=== PATIENT | female | born 1980 | race Caucasian/White ===

== ENCOUNTER 2016-06-02 13:30 | Emergency (ER) | payer OTHER ==
[~2016-06-02] VITALS: Ht 152.4 cm; Wt 106.0 kg
[~2016-06-02 13:30] MED LIST: AZIT250T94 PO; D-ME473S2 PO; IBUP-1542 PO
[2016-06-02 14:18] VITALS: Ht 152.4 cm; Wt 106.0 kg
[2016-06-02] MEDS ORDERED: HC1C30 TOP (14:51)
--- NOTE | 2016-06-02 14:56 | ERD ---
ER Documentation Chief Complaint Date/Time DATE: 06/02/16 TIME: 14:51 Chief Complaint RASH UNDER ARMS X2 DAYS HPI 36-year-old female complaining of pruritic skin lesions under both axilla 2 days. Patient stated that he has been itchy and slightly painful. Denies fever or chills. Denies exposure to new foods or new cleaning products. Denies shortness of breath. Denies history of asthma. ROS All systems reviewed and are negative except as per history of present illness. Medications Home Meds Active Scripts Hydrocortisone* Topical (Hydrocortisone* Topical) 1%-28.35 Gm Cream..g., 1 APPLIC TOP Q6 Y for ITCHING, #1 TUB Prov:LENIN WILHELM [employer] SOFTWARE ARCHITECT 06/02/16 Azithromycin* (Zithromax*) 250 Mg Tablet, 250 MG PO .ZPACK DIRECTED, #6 TAB TAKE 500 MG (2 TABS) THE FIRST DAY THEN 250 MG (1 TAB) DAYS 2-5 Prov:DORENE FAITH MD 04/15/15 Dextromethorphan Hb-Promethazine Hcl* (Promethazine DM* Syrup) 473 Ml Syrup, 5 ML PO Q6 Y for COUGH for 5 Days, ML Prov:DORENE FAITH MD 04/15/15 Ibuprofen* (Motrin*) 600 Mg Tab, 600 MG PO Q6, #14 TAB Prov:DORENE FAITH MD 04/15/15 Reported Medications [None] No Conflict Check 03/18/10 Allergies Allergies: Coded Allergies: No Known Drug Allergies (Verified Allergy, Mild, 08/13/10) PMhx/Soc Medical and Surgical Hx: pt denies Medical Hx History of Surgery: No Anesthesia Reaction: No Hx Neurological Disorder: No Hx Respiratory Disorders: No Hx Cardiac Disorders: No Hx Psychiatric Problems: No Hx Miscellaneous Medical Probl: No Hx Alcohol Use: No Hx Substance Use: No Hx Tobacco Use: No Physical Exam Vitals Vital Signs Date Time Temp Pulse Resp B/P Pulse Ox O2 Delivery O2 Flow Rate FiO2 06/02/16 14:18 97.7 82 16 120/79 96 Physical Exam General impression: Well-developed, well-nourished. Alert, oriented, in no acute distress Head: Normocephalic, atraumatic. Eyes: PERRL, EOM normal. Sclerae are normal. Conjunctiva not injected. Neck: Supple, nontender. No lymphadenopathy. No nuchal rigidity. Respiration: Normal respiratory effort. Lungs clear to auscultate bilaterally. No wheezes, rales or rhonchi. Cardiovascular: Regular rate and rhythm. No murmurs or extra heart sounds. Abdomen: Abdomen normal to inspection. Nontender. No masses or organomegaly. Bowel sounds normal. Extremities: Extremities normal to inspection, nontender. ROM normal. Neuro: Mental status normal, speech normal. PRINCIPAL SECRETARY grossly intact. Skin: Normal turgor. Dry, scaly papules and plaques are noted on the bilateral axilla. Psych: Normal mood and affect. Procedures/MDM Well-appearing 36-year-old female presented to ED with eczematous lesions under her bilateral axilla 2 days. Low suspicion for allergic reaction or anaphylaxis, Mancia-Uriel syndrome, staphylococcal scalded skin syndrome. Patient appears well, stable for discharge and outpatient management. Medical decision making shared with patient and family. Education provided to patient and family. Patient and family expressed understanding of the plan. Medications on discharge: Hydrocortisone 1% cream. Follow-up: Primary care provider in 2-3 days or return to ED if worse. Departure Diagnosis: Primary Impression: Eczema Eczema type: flexural Qualified Code: L20.82 - Flexural eczema Condition: Good Patient Instructions: Atopic Dermatitis (Eczema) Referrals: [facility] YOU HAVE RECEIVED A MEDICAL SCREENING EXAM AND THE RESULTS INDICATE THAT YOU DO NOT HAVE A CONDITION THAT REQUIRES URGENT TREATMENT IN THE EMERGENCY DEPARTMENT. FURTHER EVALUATION AND TREATMENT OF YOUR CONDITION CAN WAIT UNTIL YOU ARE SEEN IN YOUR DOCTORS OFFICE WITHIN THE NEXT 1-2 DAYS. IT IS YOUR RESPONSIBILITY TO MAKE AN APPOINTMENT FOR FOLOW-UP CARE. IF YOU HAVE A PRIMARY DOCTOR --you should call your primary doctor and schedule an appointment IF YOU DO NOT HAVE A PRIMARY DOCTOR YOU CAN CALL OUR PHYSICIAN REFERRAL HOTLINE AT IF YOU CAN NOT AFFORD TO SEE A PHYSICIAN YOU CAN CHOSE FROM THE FOLLOWING [facility] [address] [place] [facility] [address] [facility] [address] [facility] [address] [facility]. [facility] [address] [facility]. [facility] [address] Additional Instructions: Call your primary care doctor TOMORROW for an appointment during the next 1 WEEK.Tell the ward secretary that you were referred from this facility.See the doctor sooner or return here if your condition worsens before your appointment time. LENIN WILHELM. VONDA Jun 02, 2016 14:56
== END 2016-06-02 14:51 | disposition home or self-care (01) ==
LOC: E/R 13:30
DX: L20.82 Flexural eczema (principal)
CPT/HCPCS: 99283

== ENCOUNTER 2018-10-16 22:24 | Emergency (ER) | payer OTHER ==
[~2018-10-16] VITALS: Ht 162.6 cm; Wt 8.2 kg
[~2018-10-16 22:24] MED LIST changes: +AZIT250T PO; -AZIT250T94 PO; +HC1C30 TOP
[2018-10-16 22:35] VITALS: BP 116/73; PULSE 56; RESP 20; Ht 162.6 cm; Wt 8.2 kg
== END 2018-10-17 00:08 | disposition home or self-care (01) ==
LOC: FTE 22:24
DX: R09.89 Other specified symptoms and signs involving the circulatory and respiratory systems (principal)
CPT/HCPCS: 70360; 71045; 74018; 81025; Z7502